=== PATIENT | female | born 1985 | race Caucasian/White ===

== ENCOUNTER 2018-01-06 10:46 | Emergency (ER) | payer OTHER, MEDICAID, SELFPAY ==
[2018-01-06 10:51] VITALS: BP 123/79; PULSE 92; RESP 16; TEMP 36.2; O2SAT 100
--- NOTE | 2018-01-06 11:00 | PC.NURSE ---
surgeon at bedside. Verbal consent from pt for surgery if unable to manipulate bowel appropriately with palpation. Paper consent signed by surgeon, placed on chart.
--- NOTE | 2018-01-06 11:43 | DI.RAD.S_ITS ---
PROCEDURE: XR SHOULDER LT MIN 2V INDICATIONS: pain >30 days TECHNIQUE: 3 views of the shoulder were acquired. COMPARISON: None. FINDINGS: Bones: No fractures or dislocations. No suspicious bony lesions. Visualized ribs appear intact. Soft tissues: No suspicious soft tissue calcifications. IMPRESSION: Unremarkable radiographic examination of left shoulder. Dictated by: Garcia Lovelace M.D. on 01/06/2018 at 12:07 Approved by: Garcia Lovelace M.D. on 01/06/2018 at 12:29
[2018-01-06] MEDS: KETOROLAC 60 MG/2 ML VIAL IM (12:53)
--- NOTE | 2018-01-06 13:16 | ED.UPPEXIN ---
HPI - Extremity Injury (Upper) <VANIA Obrien - Last Filed: 01/06/18 13:26> General Chief Complaint: Extremity Injury, Upper Stated Complaint: left shoulder pain Time Seen by Provider: 01/06/18 12:26 Source: patient Mode of arrival: ambulatory Limitations: no limitations History of Present Illness HPI narrative: Patient presents with chief complaint of left shoulder pain for over 30 days. She states that might have stemmed from a fall that she took several months ago. She has seen her primary care provider for this pain and she was prescribed Flexeril which she found too sedating. She states she called her primary care provider asking when all she could take, but they sent her to the emergency department. She denies any numbness or tingling of her he hand or arm on the right side. She does complain of decreased range of motion. She states that her shoulder ?has sharp pains? if she carries her son. She denies previous surgeries to the shoulder. Related Data Previous Rx's Medication Instructions Recorded naproxen 500 mg PO BID PRN #30 tab 01/06/18 Allergies Allergy/AdvReac Type Severity Reaction Status Date / Time penicillin G [PENICILLIN G] Allergy Unknown Unverified 07/14/17 11:47 pneumococcal vaccine Allergy Unknown HIVE AT Unverified 07/14/17 11:47 [PNEUMOCOCCAL VACCINE] SITE\ Review of Systems <VANIA Obrien - Last Filed: 01/06/18 13:26> Review of Systems GENERAL: Denies chills, fatigue, malaise, fever, sweats. HEENT: Denies sinus pain, ear pain, sore throat, difficulty swallowing, dizziness. RESPIRATORY: Denies dyspnea, cough, wheezing, hemoptysis, sputum. CARDIOVASCULAR: Denies chest pain, palpitations, orthopnea, edema, GASTROINTESTINAL: Denies nausea, vomiting, abdominal pain, diarrhea, constipation, melena. : Denies dysuria, frequency, incontinence, hematuria, urinary retention. MUSCULOSKELETAL: See HPI SKIN: Denies rash, skin lesions, or other NEUROLOGIC: Denies weakness, headache, numbness, change in speech, confusion, seizures, incoordination. PSYCHIATRIC: No concerning psychosocial issues. 12 point review of systems is negative except for those stated above Exam <TANESHA Obrien - Last Filed: 01/06/18 13:26> Narrative Exam Narrative: GENERAL: Sitting on stretcher in no acute distress HEAD: Atraumatic. Normocephalic. No temporal or scalp tenderness. EYES: Pupils equal round and reactive. Extraocular motions intact. No scleral icterus. No injection or drainage. ENT: Nose without bleeding, purulent drainage or septal hematoma. Throat without erythema, tonsillar hypertrophy or exudate. Uvula midline. Airway patent. NECK: Trachea midline. No JVD or lymphadenopathy. Supple, nontender, no meningeal signs. CARDIOVASCULAR: Regular rate and rhythm without murmurs, gallops, or rubs. RESPIRATORY: Clear to auscultation. Breath sounds equal bilaterally. No wheezes, rales, or rhonchi. GASTROINTESTINAL: Abdomen soft, non-tender, nondistended. No hepato-splenomegaly, or palpable masses. No guarding. EXTREMITIES: Left shoulder generalized pain to palpation. Left radial pulse intact. The patient is able to flex and extend the left shoulder. She is able to flex the left shoulder to just over 90?. She is able to pronate and supinate, and has a negative empty can test. BACK: Nontender without deformity or crepitance. No flank tenderness. NEURO: AOx3. SKIN: No rash erythema or ecchymosis noted left shoulder. Initial Vital Signs Initial Vital Signs: Vital Signs Temperature 97.2 F L 01/06/18 10:51 Pulse Rate 92 H 01/06/18 10:51 Respiratory Rate 16 01/06/18 10:51 Blood Pressure 123/79 01/06/18 10:51 Pulse Oximetry 100 01/06/18 10:51 <Krystian Ulloa DO - Last Filed: 01/06/18 20:44> Initial Vital Signs Initial Vital Signs: Vital Signs Temperature 97.2 F L 01/06/18 10:51 Pulse Rate 92 H 01/06/18 10:51 Respiratory Rate 16 01/06/18 10:51 Blood Pressure 123/79 01/06/18 10:51 Pulse Oximetry 100 01/06/18 10:51 Course <LIVIER Obrien-BC - Last Filed: 01/06/18 13:26> Orders Ordered: Discontinued Medications Ketorolac Tromethamine (Toradol) 60 mg IM NOW ONE Stop: 01/06/18 12:31 Last Admin: 01/06/18 12:53 Dose: 60 mg Patient was given Toradol in the emergency department, which she states helped her pain quite a bit. I discussed with her not taking any other NSAIDs until about 8 hr after the Toradol injection. Vital Signs - 8 hr 01/06/18 13:37 Pulse Rate 78 Blood Pressure [Right Arm] 118/70 Pulse Oximetry 99 <Krystian Ulloa DO - Last Filed: 01/06/18 20:44> Orders Ordered: Discontinued Medications Ketorolac Tromethamine (Toradol) 60 mg IM NOW ONE Stop: 01/06/18 12:31 Last Admin: 01/06/18 12:53 Dose: 60 mg Vital Signs - 8 hr 01/06/18 13:37 Pulse Rate 78 Blood Pressure [Right Arm] 118/70 Pulse Oximetry 99 [facility] - Extremity Injury (Upper) <VANIA Obrien - Last Filed: 01/06/18 13:26> Differential Diagnosis Differential diagnosis: Likely dislocation of shoulder, fracture of humerus and fracture of clavicle Imaging Data shoulder x ray: Radiologist's impression: [place] [address] XRay Report Signed Patient: Doris Davila LMR#: [id number] : 1985Acct:[id number] Age/Sex: 32 / FDate of Service: 01/06/18 Loc: ED Accession Number: [id number] Procedure: XR shoulder LT min 2V Ordering Provider: Tiesha Guthrie PROCEDURE: XR SHOULDER LT MIN 2V INDICATIONS: pain >30 days TECHNIQUE: 3 views of the shoulder were acquired. COMPARISON: None. FINDINGS: Bones: No fractures or dislocations. No suspicious bony lesions. Visualized ribs appear intact. Soft tissues: No suspicious soft tissue calcifications. IMPRESSION: Unremarkable radiographic examination of left shoulder. Dictated by: Garcia Lovelace M.D. on 01/06/2018 at 12:07 Approved by: Garcia Lovelace M.D. on 01/06/2018 at 12:29 [facility] Narrative Medical decision making narrative: Patient presents with chief complaint of left shoulder pain for over 30 days. Her x-ray does not show any acute fracture or bony abnormality. She responded well to Toradol in the emergency department, so I am giving her prescription for 500 mg of naproxen b.i.d. and instructed her to not take any other NSAIDs with his prescription. I instructed her follow up with primary care provider as well as used rest ice compression elevation. She declined a sling in the emergency department. She had no questions or concerns upon discharge. Discharge Plan Departure Patient Disposition: Home Clinical Impression: Acute pain of left shoulder Discharge Date/Time: 01/06/18 13:54 Interventions: ED Discharge Assessment Last Done: 01/06/18 13:30 Instructions: How To Perform RICE (Rest, Ice, Compress, Elevate), DI for Shoulder Pain Activity Restrictions/Additional Instructions: Your x-ray shows no acute fracture at this point time. Please try the naproxen morning and night as needed for pain. Please do not take any other NSAIDs with naproxen. You can also try rest eyes compression and elevation as able, but I know this is difficult with your child. Please follow-up with your primary care provider regarding her shoulder pain. You might need physical therapy or more advanced imaging. Prescriptions: New naproxen 500 mg tablet 500 mg PO BID PRN (Reason: pain) Qty: 30 RF: 0 Referrals: Negin Hennessy PA-C [Non-Staff] - <Krystian Ulloa DO - Last Filed: 01/06/18 20:44> Cosign ED Attending [place] Attestation: I was immediately available in the department for consultation. Documentation has been reviewed. I agree with assessment and plan.
--- NOTE | 2018-01-06 13:22 | ED_ITS ---
HPI - Extremity Injury (Upper) <VANIA Obrien - Last Filed: 01/06/18 13:26> General Chief Complaint: Extremity Injury, Upper Stated Complaint: left shoulder pain Time Seen by Provider: 01/06/18 12:26 Source: patient Mode of arrival: ambulatory Limitations: no limitations History of Present Illness HPI narrative: Patient presents with chief complaint of left shoulder pain for over 30 days. She states that might have stemmed from a fall that she took several months ago. She has seen her primary care provider for this pain and she was prescribed Flexeril which she found too sedating. She states she called her primary care provider asking when all she could take, but they sent her to the emergency department. She denies any numbness or tingling of her he hand or arm on the right side. She does complain of decreased range of motion. She states that her shoulder ?has sharp pains? if she carries her son. She denies previous surgeries to the shoulder. Related Data Previous Rx's Medication Instructions Recorded naproxen 500 mg PO BID PRN #30 tab 01/06/18 Allergies Allergy/AdvReac Type Severity Reaction Status Date / Time penicillin G [PENICILLIN G] Allergy Unknown Unverified 07/14/17 11:47 pneumococcal vaccine Allergy Unknown HIVE AT Unverified 07/14/17 11:47 [PNEUMOCOCCAL VACCINE] SITE\ Review of Systems <VANIA Obrien - Last Filed: 01/06/18 13:26> Review of Systems GENERAL: Denies chills, fatigue, malaise, fever, sweats. HEENT: Denies sinus pain, ear pain, sore throat, difficulty swallowing, dizziness. RESPIRATORY: Denies dyspnea, cough, wheezing, hemoptysis, sputum. CARDIOVASCULAR: Denies chest pain, palpitations, orthopnea, edema, GASTROINTESTINAL: Denies nausea, vomiting, abdominal pain, diarrhea, constipation, melena. : Denies dysuria, frequency, incontinence, hematuria, urinary retention. MUSCULOSKELETAL: See HPI SKIN: Denies rash, skin lesions, or other NEUROLOGIC: Denies weakness, headache, numbness, change in speech, confusion, seizures, incoordination. PSYCHIATRIC: No concerning psychosocial issues. 12 point review of systems is negative except for those stated above Exam <TANESHA Obrien - Last Filed: 01/06/18 13:26> Narrative Exam Narrative: GENERAL: Sitting on stretcher in no acute distress HEAD: Atraumatic. Normocephalic. No temporal or scalp tenderness. EYES: Pupils equal round and reactive. Extraocular motions intact. No scleral icterus. No injection or drainage. ENT: Nose without bleeding, purulent drainage or septal hematoma. Throat without erythema, tonsillar hypertrophy or exudate. Uvula midline. Airway patent. NECK: Trachea midline. No JVD or lymphadenopathy. Supple, nontender, no meningeal signs. CARDIOVASCULAR: Regular rate and rhythm without murmurs, gallops, or rubs. RESPIRATORY: Clear to auscultation. Breath sounds equal bilaterally. No wheezes , rales, or rhonchi. GASTROINTESTINAL: Abdomen soft, non-tender, nondistended. No hepato-splenomegaly , or palpable masses. No guarding. EXTREMITIES: Left shoulder generalized pain to palpation. Left radial pulse intact. The patient is able to flex and extend the left shoulder. She is able to flex the left shoulder to just over 90?. She is able to pronate and supinate , and has a negative empty can test. BACK: Nontender without deformity or crepitance. No flank tenderness. NEURO: AOx3. SKIN: No rash erythema or ecchymosis noted left shoulder. Initial Vital Signs Initial Vital Signs: Vital Signs Temperature 97.2 F L 01/06/18 10:51 Pulse Rate 92 H 01/06/18 10:51 Respiratory Rate 16 01/06/18 10:51 Blood Pressure 123/79 01/06/18 10:51 Pulse Oximetry 100 01/06/18 10:51 <Krystian Ulloa DO - Last Filed: 01/06/18 20:44> Initial Vital Signs Initial Vital Signs: Vital Signs Temperature 97.2 F L 01/06/18 10:51 Pulse Rate 92 H 01/06/18 10:51 Respiratory Rate 16 01/06/18 10:51 Blood Pressure 123/79 01/06/18 10:51 Pulse Oximetry 100 01/06/18 10:51 Course <LIVIER Obrien-BC - Last Filed: 01/06/18 13:26> Orders Ordered: Discontinued Medications Ketorolac Tromethamine (Toradol) 60 mg IM NOW ONE Stop: 01/06/18 12:31 Last Admin: 01/06/18 12:53 Dose: 60 mg Patient was given Toradol in the emergency department, which she states helped her pain quite a bit. I discussed with her not taking any other NSAIDs until about 8 hr after the Toradol injection. Vital Signs - 8 hr 01/06/18 13:37 Pulse Rate 78 Blood Pressure [Right Arm] 118/70 Pulse Oximetry 99 <Krystian Ulloa DO - Last Filed: 01/06/18 20:44> Orders Ordered: Discontinued Medications Ketorolac Tromethamine (Toradol) 60 mg IM NOW ONE Stop: 01/06/18 12:31 Last Admin: 01/06/18 12:53 Dose: 60 mg Vital Signs - 8 hr 01/06/18 13:37 Pulse Rate 78 Blood Pressure [Right Arm] 118/70 Pulse Oximetry 99 [facility] - Extremity Injury (Upper) <VANIA Obrien - Last Filed: 01/06/18 13:26> Differential Diagnosis Differential diagnosis: Likely dislocation of shoulder, fracture of humerus and fracture of clavicle Imaging Data shoulder x ray: Radiologist's impression: [place] [address] XRay Report Signed Patient: Doris Davila LMR#: [id number] : 1985Acct:[id number] Age/Sex: 32 / FDate of Service: 01/06/18 Loc: ED Accession Number: [id number] Procedure: XR shoulder LT min 2V Ordering Provider: Tiesha Guthrie PROCEDURE: XR SHOULDER LT MIN 2V INDICATIONS: pain >30 days TECHNIQUE: 3 views of the shoulder were acquired. COMPARISON: None. FINDINGS: Bones: No fractures or dislocations. No suspicious bony lesions. Visualized ribs appear intact. Soft tissues: No suspicious soft tissue calcifications. IMPRESSION: Unremarkable radiographic examination of left shoulder. Dictated by: Garcia Lovelace M.D. on 01/06/2018 at 12:07 Approved by: Garcia Lovelace M.D. on 01/06/2018 at 12:29 [facility] Narrative Medical decision making narrative: Patient presents with chief complaint of left shoulder pain for over 30 days. Her x-ray does not show any acute fracture or bony abnormality. She responded well to Toradol in the emergency department, so I am giving her prescription for 500 mg of naproxen b.i.d. and instructed her to not take any other NSAIDs with his prescription. I instructed her follow up with primary care provider as well as used rest ice compression elevation. She declined a sling in the emergency department. She had no questions or concerns upon discharge. Discharge Plan Departure Patient Disposition: Home Clinical Impression: Acute pain of left shoulder Discharge Date/Time: 01/06/18 13:54 Interventions: ED Discharge Assessment Last Done: 01/06/18 13:30 Instructions: How To Perform RICE (Rest, Ice, Compress, Elevate), DI for Shoulder Pain Activity Restrictions/Additional Instructions: Your x-ray shows no acute fracture at this point time. Please try the naproxen morning and night as needed for pain. Please do not take any other NSAIDs with naproxen. You can also try rest eyes compression and elevation as able, but I know this is difficult with your child. Please follow-up with your primary care provider regarding her shoulder pain. You might need physical therapy or more advanced imaging. Prescriptions: New naproxen 500 mg tablet 500 mg PO BID PRN (Reason: pain) Qty: 30 RF: 0 Referrals: Negin Hennessy PA-C [Non-Staff] - <Krystian Ulloa DO - Last Filed: 01/06/18 20:44> Cosign ED Attending [place] Attestation: I was immediately available in the department for consultation. Documentation has been reviewed. I agree with assessment and plan.
[2018-01-06 13:37] VITALS: BP 118/70; PULSE 78; O2SAT 99
== END 2018-01-06 13:54 | disposition home or self-care (01) ==
PROVIDERS: Emergency Provider Nurse Practitioner Family
DX: M25.512 Pain in left shoulder (principal)
CPT/HCPCS: 73030; 99282; 99283; J1885

== ENCOUNTER → 2021-03-10 13:24 | Outpatient (ROUT) | payer OTHER, SELFPAY ==
[2021-03-10 14:14] LABS: COVID19 -Nasal RAPID Negative (Negative)
== END ==
PROVIDERS: Family Provider Internal Medicine; PCP Internal Medicine; Visit Provider Physician Assistant
DX: Z20.822 Contact with and (suspected) exposure to COVID-19 (principal)
CPT/HCPCS: 87635

== ENCOUNTER → 2021-04-22 12:41 | Outpatient (ROUT) | payer OTHER, SELFPAY ==
[2021-04-22 13:07] LABS: COVID19 -Nasal RAPID Negative (Negative)
== END ==
PROVIDERS: Family Provider Internal Medicine; PCP Internal Medicine; Visit Provider Physician Assistant
DX: Z20.822 Contact with and (suspected) exposure to COVID-19 (principal)
CPT/HCPCS: 87635

== ENCOUNTER → 2024-01-13 13:46 | Outpatient (CLI) | payer OTHER, MEDICAID, SELFPAY ==
--- NOTE | 2024-01-13 13:48 | DI.RAD.S_ITS ---
PROCEDURE: XR LUMBAR SPINE 2-3V INDICATIONS: eval back pain TECHNIQUE: 3 views of the lumbar spine were acquired. COMPARISON: None. FINDINGS: Lumbar spine curvature and alignment: Normal. Bones: There are no osseous abnormalities. Disc spaces: Moderate L1-2 through L5-S1 degenerative disc disease noted. There is moderate L5-S1 degenerative facet disease. Soft tissues: No soft tissue swelling, calcification or mass. IMPRESSION: Degeneration Dictated by: Mynor Sierra M.D. on 01/14/2024 at 9:07 Approved by: Mynor Sierra M.D. on 01/14/2024 at 9:08
== END ==
PROVIDERS: Family Provider Internal Medicine; PCP Family Medicine; Referring Provider Family Medicine; Visit Provider Family Medicine
DX: M51.360 Other intervertebral disc degeneration, lumbar region with discogenic back pain only (principal); M51.370 Other intervertebral disc degeneration, lumbosacral region with discogenic back pain only; M47.817 Spondylosis without myelopathy or radiculopathy, lumbosacral region; M54.9 Dorsalgia, unspecified
CPT/HCPCS: 72100

== ENCOUNTER → 2024-02-29 16:41 | Outpatient (CLI) | payer OTHER, MEDICAID, SELFPAY ==
[2024-02-29 18:09] LABS: Add Manual Diff / Slide Review NO; Basophils Absolute Auto 200 /uL (0-100); Basophils Percent Auto 1.1 % (0-2); Eosinophils Absolute Auto 1400 /uL (0-450); Eosinophils Percent Auto 9.9 % (2-4); Hematocrit 45.9 % (36-46); Lymphocytes Absolute Auto 4100 /uL (1100-4500); Lymphocytes Percent Auto 28.6 % (25-40); Mean Corpuscular HGB Conc 32.7 % (30-36); Mean Corpuscular Hemoglobin 26.6 PG (26-34); Mean Corpuscular Volume 81.5 fL (80-100); Monocytes Absolute Auto 1100 /uL (0-900); Monocytes Percent Auto 7.6 % (3-14); Neutrophils Absolute Auto 7600 /uL (1500-7000); Neutrophils Percent Auto 52.8 % (50-75); Platelet Count 297 X10^3/uL (150-400); Red Blood Cell Count 5.63 X10^6/uL (4.0-5.2); Red Cell Distribution Width 13.7 % (11.6-14.8); White Blood Cell Count 14.3 X10^3/uL (4.5-11.0)
== END ==
PROVIDERS: Family Provider Internal Medicine; PCP Family Medicine; Referring Provider Student in an Organized Health Care Education/Training Program; Visit Provider Student in an Organized Health Care Education/Training Program
DX: J45.50 Severe persistent asthma, uncomplicated (principal)
CPT/HCPCS: 36415; 82785; 85025; 86003

== ENCOUNTER → 2024-05-12 11:50 | Outpatient (CLI) | payer OTHER, SELFPAY ==
[2024-05-12 12:32] LABS: Add Manual Diff / Slide Review NO; Basophils Absolute Auto 0 /uL (0-100); Basophils Percent Auto 0.2 % (0-2); Eosinophils Absolute Auto 0 /uL (0-450); Hematocrit 42.1 % (36-46); Hemoglobin 13.9 g/dL (12.0-16.0); Lymphocytes Absolute Auto 3100 /uL (1100-4500); Lymphocytes Percent Auto 30.5 % (25-40); Mean Corpuscular HGB Conc 32.9 % (30-36); Mean Corpuscular Hemoglobin 26.7 PG (26-34); Monocytes Absolute Auto 700 /uL (0-900); Neutrophils Absolute Auto 6300 /uL (1500-7000); Neutrophils Percent Auto 62.3 % (50-75); Platelet Count 269 X10^3/uL (150-400); Red Cell Distribution Width 13.3 % (11.6-14.8); White Blood Cell Count 10.1 X10^3/uL (4.5-11.0)
[2024-05-12 12:56] LABS: Lithium 0.8 mmol/L (0.6-1.2)
[2024-05-12 13:00] LABS: Alanine Aminotransferase 102 IU/L (<35); Albumin 4.7 g/dL (3.5-5.0); Albumin Globulin Ratio 1.6 (1.0-2.8); Alkaline Phosphatase 69 U/L (38-126); Aspartate Aminotransferase 60 IU/L (14-36); BUN Creatinine Ratio 12.7 (6-22); Bilirubin Total 0.5 mg/dL (0.2-1.3); Blood Urea Nitrogen 16 mg/dL (7-17); Carbon Dioxide 24 mmol/L (22-32); Chloride 108 mmol/L (98-107); Estimated Glomerular Filt Rate 56 mL/min (>60); Globulin 2.9 g/dL (1.7-4.1); Glucose 101 mg/dL (70-100); HEMOLYSIS < 15 (0-50); Potassium 4.6 mmol/L (3.4-5.1); Sodium 139 mmol/L (137-145); Total Protein 7.6 g/dL (6.3-8.2)
[2024-05-12 13:06] LABS: Hemoglobin A1C% w Est Avg Glu 5.3 % (4.0-6.0)
[2024-05-12 13:21] LABS: TSH w/ Reflex to FT4 1.96 uIU/mL (0.47-4.68)
== END ==
PROVIDERS: Family Provider Internal Medicine; PCP Family Medicine; Referring Provider Family Medicine; Visit Provider Family Medicine
DX: J45.50 Severe persistent asthma, uncomplicated (principal); J82.83 Eosinophilic asthma; Z83.3 Family history of diabetes mellitus; F31.62 Bipolar disorder, current episode mixed, moderate; F20.0 Paranoid schizophrenia
CPT/HCPCS: 36415; 80053; 80178; 83036; 84443; 85025